=== PATIENT | female | born 1970 | race Caucasian/White ===

== ENCOUNTER 2023-02-21 08:16 | Observation (INO) | payer MEDICARE, MEDICAID, SELFPAY ==
[2023-02-16] MEDS: Lactated Ringers 1,000 ML 15 ML IV (12:47)
[2023-02-16 12:48] VITALS: BP 84/54; PULSE 56; RESP 18; TEMP 36.4; O2SAT 100; BMI 26.9
[2023-02-16 13:01] VITALS: BP 89/56
--- NOTE | 2023-02-16 13:21 | NURSING ---
Surgery cancelled d/t low bp, instructions given to pt when she reschedules her surgery to not take bp meds by Dr Barnes. Pt d/c home, she states she will call Dr Wilder office to reschedule.
[2023-02-21] VITALS (14 sets, daily range): BP systolic 83–166; BP diastolic 58–97; PULSE 74–93; RESP 14–18; TEMP 36.8–37.4; O2SAT 92–100; BMI 26.9
[2023-02-21] MEDS: Lactated Ringers 1,000 ML 15 ML IV (07:55)
--- NOTE | 2023-02-21 08:05 | RAD_ITS ---
PROCEDURE: Implantation of spinal cord stimulator. DATE OF EXAMINATION: February 21, 2023. INDICATION: Female, 52 years old. Chronic back pain. Prior laminectomy. FLUOROSCOPY TIME (if supplied): (20.9 seconds) minutes/seconds. 3.15 mGy RAD/Thoracic Spine 2 Views IMPRESSION: Intraoperative imaging provided for implantation of spinal cord stimulator. The distal tip of the electrodes is seen at the T7-T8 level. Electronically Signed: Arnav Bravo MD at 11:19 EST ,
--- NOTE | 2023-02-21 08:14 | OP.PCM_ITS ---
Report of Operation Date of Procedure: 02/21/23 Description of Surgical Findings:: REPORT OF OPERATION PREOPERATIVE DIAGNOSES: 1. Lumbar stenosis, spondylosis. 2. Chronic back pain POSTOPERATIVE DIAGNOSES: 1. Lumbar stenosis, spondylosis. 2. Chronic back pain PROCEDURE PERFORMED: 1. T9-10 partial bilateral laminectomies. 2. Dorsal column stimulator paddle lead placement. 3. Subcutaneous placement of dorsal column stimulator generator. 4. One hour of complex programming postoperatively. 5. Neuro monitoring bilateral upper and bilateral lower extremities SURGEON: [ ] ENVIRONMENTAL SAMPLER: [ ] ANESTHESIA: General endotracheal anesthesia. IV FLUIDS: [ ] mL of crystalloid. ESTIMATED BLOOD LOSS: [ ] mL. URINE OUTPUT: [ ]ml. STATEMENT OF MEDICAL NECESSITY: This patient is a 52-year-old female with intractable back and leg pain. The patient has opted for treatment of operative intervention, understanding the risks to include, damage to nerves, arteries and veins, possibility of continued pain, spinal fluid leak, paralysis, need for additional surgery, pulmonary embolism, heart attack, stroke, or . DESCRIPTION OF PROCEDURE: The patient was identified in the preoperative holding area. There, the patient received preoperative IV antibotics and was then transferred to the operating suite. Once in the operating suite, after general endotracheal anesthesia was established, the patient was transferred to the [place] operating table in the prone position. All bony prominences were padded accordingly. The thoracolumbar spine was prepped and draped in standard surgical fashion. Incision was made over the thoracolumbar spine. An incision was centered over the T9-10 interlaminar space, taken down to the thoracic fascia. It was then divided and subperiosteal dissection was taken down to the level of the facet joints. Partial bilateral laminectomies were performed at the T9-10 interspace, with part of the inferior lamina of T9, and superior lamina of T10. At this point the paddle lead was placed spanning from T8 inferiorly. It was then anchored to the fascia using standard anchors with a 0 Ethibond suture. A second incision was made over the right iliolumbar region for the battery pocket. Wires from the stimulator were then passed subcutaneously with a passing device to the battery pocket and then connected to a new generator battery. Both incisions were then irrigated and closed with #1 vicryl for the fascia, 2-0 vicryl for subcutaneous, and 2-0 nylon for skin. Sterile dressing was applied with 4 x 4, ABD, and tape. Sponge, instrument, and needle counts were correct at the end of the case. Neurophysiologic monitoring was maintained at baseline throughout the duration of the case. The patient was extubated, taken to PACU without incident. Then one hour was spent with complex programming when the patient recovered Surgeon: Davie Wilder Type of Anesthesia: General Estimated Blood Loss (mL): 50 cc Fluids Replaced: 1300 cc Grafts/Implants Used: [employer] Complications None Admit VTE Documentation VTE Present on Admission: No
--- NOTE | 2023-02-21 08:14 | PN.ORTHO_ITS ---
Subjective Subjective Seen and examined postop. Resting comfortably. Pain controlled. No complaints Objective Data Objective Data Vital Signs: Vital Signs Temp Pulse Resp BP Pulse Ox O2 Del Method 98.7 F 74 16 135/62 H 100 Room Air 02/21/23 07:38 02/21/23 07:38 02/21/23 07:38 02/21/23 07:38 02/21/23 07:38 02/21/23 07:38 Oxygen Delivery Method Room Air Weight: 133 lb 3.2 oz Body Mass Index (BMI) 26.9 Physical Exam Const alert, oriented x3 and no apparent distress General Appearance: cooperative, comfortable and well kempt HEENT normocephalic and head/scalp atraumatic Eyes EOMs intact bilaterally and conjunctivae normal Neck full ROM General: normal visual inspection Chest inspection of chest normal and palpation of chest normal Resp normal respiratory effort and normal air movement Cardio regular rate, regular rhythm and peripheral pulses 2+ throughout GI soft to palpation, non-tender and non-distended Back/Spine Back/Spine Narrative: Dressings clean dry and intact Cervical Spine: cervical ROM normal Thoracic Spine / Upper Back: normal to inspection Lumbar Spine / Lower Back: normal to inspection Extremity normal to inspection, full ROM, normal capillary refill, no clubbing, cyanosis or edema and no calf tenderness Skin no rashes or lesions noted General Skin Exam: no breakdown Neuro oriented x3, CN's II-XII intact bilaterally, moves all extremities, no focal motor deficits, no sensory deficits noted and deep tendon reflexes 2+ bila terally Motor Exam: strength 5/5 throughout and muscle tone normal throughout Assessment & Plan Assessment/Plan (1) Lumbar spondylosis: PLAN: Admit to floor for observation See orders Discharge planning likely home tomorrow
--- NOTE | 2023-02-21 08:14 | PCM.DC.SUM ---
Providers Date of Admission: 02/21/23 Primary Care Physician: Stella Pena EXTENSION SERVICE ADVISOR-C Reason For Visit: THORACIC 9 - THORACIC 10 LAMINECTOM Medications at Discharge Home Medications amlodipine 2.5 mg tablet 2.5 mg PO DAILY 02/10/23 atorvastatin 40 mg tablet 40 mg PO DAILY 02/10/23 duloxetine 30 mg capsule,delayed release 60 mg PO DAILY 02/10/23 lisinopril 20 mg tablet 40 mg PO DAILY 02/10/23 multivitamin (Daily Multi-Vitamin tablet) 1 tab PO DAILY 02/10/23 nebivolol 20 mg tablet 40 mg PO DAILY 02/10/23 potassium 99 mg tablet 99 mg PO DAILY 02/10/23 hydrocodone-acetaminophen 5-325mg 5mg-325mg 1 tab PO Q6H 7 days #28 tabs 02/21/23 Hospital Course Operations - (T9-10 laminectomy. Implantation of spinal cord stimulator lead and generator) Summary of Care Provided Minutes Spent on Discharge: 15 Hospital Course: The patient is a 52-year-old female who underwent implantation of a spinal cord stimulator lead and generator on 02/21/2023. She was subsequently admitted. The hospitalist was consulted for medical management. The patient progressed well. Her pain was controlled and she was mobilizing well. No significant medical issues were reported. She was subsequently discharged home on 02/22/2023 to follow-up with Dr. Wilder. Physical Exam Const alert, oriented x3 and no apparent distress General Appearance: cooperative, comfortable and well kempt Neck full ROM General: normal visual inspection Resp normal respiratory effort and normal air movement Effort and Inspection: able to speak in complete sentences Cardio regular rate and peripheral pulses 2+ throughout GI soft to palpation, non-tender and non-distended Back/Spine Back/Spine Narrative: Dressings clean dry and intact. Incisions well approximated with interrupted sutures in place. No tenderness erythema drainage or fluctuance Cervical Spine: cervical ROM normal Thoracic Spine / Upper Back: normal to inspection Lumbar Spine / Lower Back: normal to inspection Extremity normal to inspection, full ROM, normal capillary refill, no clubbing, cyanosis or edema and no calf tenderness Skin no rashes or lesions noted General Skin Exam: no breakdown Neuro oriented x3, CN's II-XII intact bilaterally, moves all extremities, no focal motor deficits, no sensory deficits noted and deep tendon reflexes 2+ bilaterally Motor Exam: strength 5/5 throughout and muscle tone normal throughout Weight / BMI Weight Weight: 133 lb 3.2 oz Body Mass Index (BMI) 26.9 D/C Instructions Discharge Diet: No restrictions Additional Activity Instructions: No repetitive bending twisting or lifting greater than 5 pounds. No reaching above head. Call your doctor if your incision/area has: Continuous Slow Oozing, Sudden Increased Bleeding, Increased Pain/ Swelling, Increased Redness, Foul Smelling Discharge and Swelling at the incision site Call your doctor if you observe: Fever of 101 or Higher, Coldness, Increased Pain, Numbness or Tingling, Change in Color, Inability to urinate, Inability to have a bowel movement, Using more than 1 pad per hour, Shortness of breath, Dizziness, Fainting spells, Swelling in the ankles, Chest pain, Prolonged hiccupping, Increased palpitations (irregular heartbeat), Calf discomfort and Uncontrolled pain Cleanse incision/area with: Do not get Incision Wet and Keep Dressing Clean & Dry Additional Dressing/Incision Instructions: Change dressings daily with iodine gauze and tape. Use waterproof dressings to shower. Additional Instructions: 1. During your procedure, you received sedation through your IV. Please follow these instructions for the next 24 hours: Do not drive a motor vehicle, do not drink any alcoholic beverages, and do not sign any legal documents or make personal or business decisions. A responsible adult should stay with you at least 6 hours after the procedure. 2. Keep your surgical site/incision clean and the dressing dry and intact. Change dressings daily with iodine gauze and tape. Use waterproof dressings to shower. You may use an ice pack at the surgical site to reduce any swelling or discomfort. 3. Monitor the incision site for any signs or symptoms of infection. Watch for redness, excessive swelling or drainage, or continued pain at the incision site after 3 days. Contact your physician immediately for a fever, chills or a temperature of 101.5? F or greater. 4. Take your medication exactly as prescribed by your physician. Do not attempt to wean yourself off any of your medications even though your pain is improving. This process needs to be carefully monitored by your doctor. Take any antibiotics prescribed exactly as directed and until they are gone. 5. Avoid stretching, bending, pulling, twisting or any sudden movements. Do not bend or twist at the waist. Do not raise your arms above your head; however, you may brush your hair or scratch your head, but nothing higher than that. Any movements higher than that could cause your electrode wires to move from their current position. No not lie on your stomach. Do not bend at the waist to put your shoes on; you must lift your legs up to do this. 6. No lifting greater than 5 pounds. Try to be careful. Any falls could dislodge the leads. 7. Do not operate a motor vehicle, equipment or a power tool while your stimulator is on. If you need to use any equipment, you must turn your stimulator off first. As a passenger in a motor vehicle, you may use your stimulator. 8. Do not have any manipulation done by a chiropractor or any other physician without first consulting with the physician who placed your spinal cord stimulator. 9. Without movement, you may note changes in the intensity of the stimulator. For example, you may notice a different stimulation when you are standing than when you are sitting or lying down. This is normal the first few weeks following the implant and will stabilize over time. 10. Please contact our office if you are even scheduled for a CT scan or an MRI. 11. Please call us if you have any questions, problems or concerns. Please Follow Up With: Davie Wilder, DO Meaningful Use Info Meaningful Use Diagnoses (Choose all that apply): None applicable Discharge Plan Admission Admit Date/Time: 02/21/23 08:16 Attending Provider: Raymond Song Primary Care Provider: Stella Pena NP Consulting Providers: Faith Garnett; Jhonny Jenkins; Mary Lou,[place]; Dionte,Tiffanie; Abhay Flores; Monica Whitley; Yue Booker; Raymond Ogden; Raymond Song; Jh Saldana; Sterling Sandoval; Dalia Ochoa; Tom Pickett; Quoc Madrid; Don Joyce; Yuni Morris; Travis Nicole; Emma Ewing; Eriberto Amaro; Emre Blair; Michael Gonzalez; Delmi Owens; Elio Saenz; Rosamaria Mitchell NP; John Butler; Davie Wilder Discharge Orders/Prescriptions Prescriptions: New hydrocodone-acetaminophen 5-325 mg tablet 1 tab PO Q6H 7 Days Qty: 28 0RF Continued multivitamin [Daily Multi-Vitamin] Tablet 1 tab PO DAILY potassium 99 mg tablet 99 mg PO DAILY atorvastatin 40 mg tablet 40 mg PO DAILY Patient Comments: TAKE 1 TABLET BY MOUTH ONCE DAILY FOR 90 DAYS nebivolol 20 mg tablet 40 mg PO DAILY Patient Comments: TAKE 2 TABLETS BY MOUTH IN THE MORNING lisinopril 20 mg tablet 40 mg PO DAILY amlodipine 2.5 mg tablet 2.5 mg PO DAILY Patient Comments: TAKE 1 TABLET BY MOUTH ONCE DAILY IN THE MORNING duloxetine 30 mg capsule,delayed release(DR/EC) 60 mg PO DAILY Patient Comments: TAKE ONE CAPSULE BY MOUTH with 60mg DOSE EVERY DAY Discontinued tizanidine 2 mg tablet 12 mg PO TID Referrals / Follow Up: Davie Wilder DO [Med Staff - Active Staff] - Stella Pena NP, EXTENSION SERVICE ADVISOR-C [Primary Care Provider] - Disposition Disposition (needs filled in before D/C Order can be placed): Home, Self Care
[2023-02-21] MEDS: Cefazolin 2 GM in 0.9% Normal Saline (100mL Bag) 100 ML IV (08:55)
[2023-02-21] MEDS: oxyCODONE 5 MG Tablet PO ×2 (13:16→17:46)
[2023-02-21] MEDS: Morphine 4 MG/ML Syringe IV ×2 (14:03→16:10)
[2023-02-21] MEDS: tiZANidine HCl 2 MG Tablet 12 MG PO ×2 (14:38→21:19)
[2023-02-21] MEDS: Acetaminophen 500 MG Tablet 1000 MG PO (14:41)
[2023-02-21] MEDS: Lactated Ringers 1,000 ML 100 ML IV (17:46)
[2023-02-21] MEDS: Cefazolin 1 GM/50 ML BAG IV (18:50)
--- NOTE | 2023-02-21 19:10 | PCM.PN.HOSP ---
Reason for Visit Reason for Visit: Diagnoses Spondylosis without myelopathy or radiculopathy, lumbar region (02/21/23) Subjective Subjective And his recent status post operative intervention of the lumbar spine per Dr. Wilder. She notes she has 10 out of 10 pain, sharp and dull aching to the lumbar spine with no paresthesias or focal shooting pains down her legs. She does state that she did urinate recently postoperatively and has blood in her urine which is new. She denies any dysuria prior to her current presentation. Patient denies fevers, chills, nausea, emesis, abdominal pain, chest pain or dyspnea. Objective Data Objective Data Vital Signs: Vital Signs Temp Pulse Resp BP Pulse Ox O2 Del Method O2 Flow Rate 98.4 F 78 16 99/59 L 96 Room Air 2 02/21/23 18:34 02/21/23 18:34 02/21/23 18:34 02/21/23 18:34 02/21/23 18:34 02/21/23 18:34 02/21/23 12:45 Oxygen Flow Rate (L/min) 2 Oxygen Delivery Method Room Air Weight: 133 lb 3.2 oz Body Mass Index (BMI) 26.9 Radiography Diagnostic Testing: Radiology Impression Thoracic Spine X-Ray 02/21/23 08:05 IMPRESSION: Intraoperative imaging provided for implantation of spinal cord stimulator. The distal tip of the electrodes is seen at the T7-T8 level. Electronically Signed: Arnav Bravo MD at 11:19 EST , Physical Exam Narrative Physical Examination: General: Awake, alert, oriented x 3 and cooperative, seated upright in MS bed, noting 10 out of 10 lumbar back pain. Skin: Normal color, normal turgor, no icterus, no cyanosis except for recent OR with lumbar back dressing in place with no drainage. HEENT: AT/NC, EOMI, PERRLA, mildly dry MM, no carotid bruits or JVD noted. Lungs: CTA bilaterally, moderate effort, mild decrease BL bases, no rales, ronchi or wheezing. Heart: Regular rate and rhythm; no gallop, rub audible. Abdomen: Soft, mild generalized discomfort, worse right upper quadrant, mildly tympanitic, mildly distended, hyperactive BS, no obvious appreciated HSM. Extremities: No cyanosis, clubbing, or edema. Neurological: Patient awake, alert, oriented as noted, cognitive function intact; pupils equally reactive to light and accommodation, cranial nerves II-XII grossly normal, moving all 4 extremities except limited given recent lumbar back surgery, no focal deficits, strength accordingly moderately to severely globally decreased. Psychiatric: Affect appears uncomfortable, no acute evidence of depressive or anxiety feelings. Assessment & Plan Assessment/Plan (1) Lumbar spondylosis: PLAN: Plan The patient is a 52 y/o F w/ PMHx: CAD s/p PCI, HTN, HLD, OA, Anxiety and Depression, Chronic back pain who presents to the [facility] on 02/21/23 secondary to history of ongoing chronic back pain with lumbar stenosis and spondylosis with planned T9-10 partial bilateral laminectomy, dorsal column stimulator paddle lead placement, subcutaneous placement of dorsal column stimulator generator per Dr. Wilder. #1. Chronic lumbar back pain with stenosis and spondylosis: Failed conservative therapies and treatments, admitted per Dr. Wilder for planned T9-10 partial bilateral laminectomy, dorsal column stimulator paddle lead placement, subcutaneous placement dorsal column stimulator, post-operative pain management, bowel regimen, DVT Prophylaxis, PT/OT/CM per surgery discretion. #2. Postoperative hematuria, unclear etiology: Attempted to clarify with staff if patient was straight cathed for procedure, no Marcelo upon patient transition to floor from PACU, urinalysis requested. If Marcelo catheter was present and removed or if patient was straight catheterized then certainly could have been a microtear. #3. CAD: Status post PCI, resume aspirin therapy once cleared per orthospine given recent operative intervention, continue nebivolol, lisinopril, statin therapy. #4. Hypertension: Continue home regimen including nebivolol, lisinopril, amlodipine, PRN hydralazine. #5. Hyperlipidemia: Continue patient on statin therapy. #6. Anxiety and depression: We will continue patient home duloxetine regimen. #7. DVT prophylaxis: SCDs, chemoprophylaxis per surgery discretion given recent OR. Charges/Coding Visit Charges Inpatient E&M: 17459 Subs Hosp L3
[2023-02-21 19:27] LABS: Bacteria 0 SEEN /hpf (None Seen); Mucous, Urine 0 SEEN /hpf (<or=2+)
[2023-02-21 19:28] LABS: Glucose, Dipstick Normal (Normal); Ketone-Dipstick Negative (Negative); Leukocyte Esterase-Dipstick 25 /ul (Negative); Nitrite-Dipstick Negative (Negative); Occult Blood-Urine 250 /ul (Negative); Protein-Dipstick 30 mg/dl (Negative); Urine Bilirubin Dipstick Negative (Negative); Urine Clarity Sl. Cloudy (Clear); Urine Urobilinogen Normal (Normal)
[2023-02-21 19:30] LABS: Color, Urine SEE COMMENT BELOW (Yellow)
[2023-02-21 19:34] LABS: Red Blood Cells-Urine 10-25 SEEN /hpf (0-5)
[2023-02-21 19:35] LABS: Squamous Epithelial Cells - UA 0-5 SEEN /hpf (5-10); White Blood Cells 0-5 SEEN /hpf (0-5)
[2023-02-21] MEDS: Morphine 2 MG/ML Syringe IV ×2 (19:38→21:21)
[2023-02-21] MEDS: Atorvastatin Calcium 40 MG Tablet PO (21:29)
[2023-02-22 02:31] VITALS: BP 140/89; PULSE 77; RESP 16; TEMP 36.7; O2SAT 100
[2023-02-22] MEDS: oxyCODONE 5 MG Tablet PO ×3 (02:35→10:42)
[2023-02-22] MEDS: Cefazolin 1 GM/50 ML BAG IV (02:36)
[2023-02-22] MEDS: Morphine 2 MG/ML Syringe IV (04:46)
[2023-02-22] MEDS: tiZANidine HCl 2 MG Tablet 12 MG PO (04:49)
[2023-02-22 05:04] VITALS: BP 148/84; PULSE 81; RESP 18; TEMP 36.6; O2SAT 100
--- NOTE | 2023-02-22 07:16 | PN.HOSP_ITS ---
Reason for Visit Reason for Visit: Diagnoses Spondylosis without myelopathy or radiculopathy, lumbar region (02/21/23) Subjective Subjective Patient is a 52-year-old lady with history of chronic low back pain secondary to spinal spondylosis and stenosis who underwent T9-10 partial bilateral laminectomy, dorsal column stimulator paddle lead placement, subcutaneous placement dorsal column stimulator on 02/22/[address] Wilder. The hospitalist service consulted to assist with management of patient medical comorbid Objective Data Objective Data Vital Signs: Vital Signs Temp Pulse Resp BP Pulse Ox O2 Del Method O2 Flow Rate 97.9 F 81 18 148/84 H 100 Room Air 2 02/22/23 05:04 02/22/23 05:04 02/22/23 05:04 02/22/23 05:04 02/22/23 05:04 02/22/23 05:04 02/21/23 12:45 Oxygen Flow Rate (L/min) 2 Oxygen Delivery Method Room Air Weight: 60.419 kg Body Mass Index (BMI) 26.9 Intake & Output: Intake and Output for Last 24 Hours 02/20/23 02/21/23 02/22/23 23:59 23:59 23:59 Intake Total 326.25 / 949.58 751.08 / 751.08 Balance 326.25 / 949.58 751.08 / 751.08 Lab / Micro Data Labs: Laboratory Results - last 24 hr 02/21/23 19:15: Urine Color SEE COMMENT BELOW, Urine Clarity Sl. Cloudy, Urine pH 8.0, Ur Specific [place] 1.010, Urine Protein 30 H, Urine Glucose (UA) Normal, Urine Ketones Negative, Urine Occult Blood 250 H, Urine Nitrite Negative, Urine Bilirubin Negative, Urine Urobilinogen Normal, Ur Leukocyte Esterase 25 H, Urine RBC 10-25 SEEN, Urine WBC 0-5 SEEN, Ur Squamous Epith Cells 0-5 SEEN, Urine Bacteria 0 SEEN, Urine Mucus 0 SEEN Radiography Diagnostic Testing: Radiology Impression Thoracic Spine X-Ray 02/21/23 08:05 IMPRESSION: Intraoperative imaging provided for implantation of spinal cord stimulator. The distal tip of the electrodes is seen at the T7-T8 level. Electronically Signed: Arnav Bravo MD at 11:19 EST , Physical Exam Narrative GENERAL: cooperative HEENT: Atraumatic; normocephalic EYES; Anicteric, Normal Conjunctiva NECK; supple, normal thyroid, RESPIRATORY: Diminished to auscultation CARDIOVASCULAR: Regular S1 S2, GI: soft, normoactive bowel sounds, : No Renal angle tenderness; EXTREMITIES: No edema, no clubbing, MUSCULOSKELETAL: no muscle wasting NEURO: Awake; no lateralizing signs. SKIN: No Rash PSYCH; Flat affect Assessment & Plan Assessment/Plan (1) Lumbar spondylosis: PLAN: Plan Patient is a 52-year-old lady with history of chronic low back pain secondary to spinal spondylosis and stenosis who underwent T9-10 partial bilateral laminectomy, dorsal column stimulator paddle lead placement, subcutaneous placement dorsal column stimulator on 02/22/[address] Wilder. The hospitalist service consulted to assist with management of patient medical comorbidities 1. Chronic back pain ? Status post PT9-10 partial bilateral laminectomy, dorsal column stimulator paddle lead placement, subcutaneous placement dorsal column stimulator on 02/22/[address] Wilder. The hospitalist service consulted to assist with mary gement of patient medical comorbid 2. Postop hematuria ? Resolved 3. Coronary artery disease ? With previous PCI patient is on antiplatelet therapy with aspirin plan is to continue 4. Essential hypertension ? Patient blood pressure levels low this a.m. antihypertensives held 5. Dyslipidemia ?Patient is on statin therapy, continued at home dose 6. Depression with anxiety ? Patient is on duloxetine continue 7. DVT prophylaxis ? Defer to primary service Time spent in the patient's overall evaluation,decision-making process, review of diagnostic data, adjustment of management, discussion with other providers, nursing nursing and ancillary staff involved in patient's care documentation, 35 minutes Charges/Coding Visit Charges Inpatient E&M: 13642 Subs Hosp L2
[2023-02-22] MEDS: Ensure Surgery 237 ML LIQUID PO (07:22)
[2023-02-22] MEDS: DULoxetine Hcl 60 MG Capsule PO (07:23)
[2023-02-22] MEDS: Multivitamins,Therapeutic Tablet 1 TABLET PO (07:23)
[2023-02-22] MEDS: Atorvastatin Calcium 40 MG Tablet PO (07:23)
[2023-02-22 08:08] VITALS: BP 94/57; PULSE 77; RESP 18; TEMP 36.6; O2SAT 94
[2023-02-22 10:54] VITALS: BP 130/97; PULSE 95; RESP 18; TEMP 36.6; O2SAT 97
--- NOTE | 2023-02-22 10:55 | CASEMGMT ---
GRISEL ANTHONY Assessment: Face to Face with pt for initial transition planning/care coordination assessment. RN GABRIELLE introduced self and role at [facility], pt voices understanding and consents to assessment. Pt is A&O x4 and answers all questions appropriately at this time. Pt standing in room, ready to use bathroom. Care providers, pharmacy, and demographics verified/updated. Admitting Dx: thoracic 9- thoracic 10 laminectomy PCP:Stella Pena ICU TECH Specialists:richard Wilder; Shanique, cardio [facility], pt states meds were already called in here. Insurance: [facility], [place] Prescription Benefit: yes [place]: [place], sig other Living Arrangements: Pt lives with sig other in a ground level apt with a couple of steps to enter. Pt reports she is I in ADL's and denies concerns at home. Transportation: Pt drives self and denies concerns with transportation. Pt sig other will transport her until she can drive again. DME:None and denies need for. HHC/SNF: Denies hx of Pt states no concerns with going home at time of dc. Pt states no further concerns/needs. CM to follow. Advised pt to ask CM if any further question/concerns/needs arise, voices understanding. Pt Goal: Home Plan: Home
--- NOTE | 2023-02-22 11:00 | CASEMGMT ---
GRISEL CM in to discuss CARDOZO form with patient. RN CM explained CARDOZO form, patient voiced understanding. Pt signed form and filed in chart. Pt provided with a copy of signed CARDOZO form. Patient had no further questions or concerns at this time.
--- NOTE | 2023-02-22 18:01 | PHA.DC.MC.R ---
Pharmacy [facility] Pharmacy Service has performed discharge medication reconciliation and counseling for this patient. The patient's discharge medication list was reviewed for discrepancies and discrepancies were resolved. The patient was counseled on the following discharge medications and changes in medications for homegoing were reviewed. 1. NORCO The Reason for Use, instructions for use, and potential side effects were reviewed for all new medications. The patient's questions regarding all of their medications were answered. The patient was able to verbally demonstrate an understanding of their discharge medications. patient was counselled by Ramin Goode PharmD candidate Medications at Discharge Home Medications amlodipine 2.5 mg tablet 2.5 mg PO DAILY 02/10/23 atorvastatin 40 mg tablet 40 mg PO DAILY 02/10/23 duloxetine 30 mg capsule,delayed release 60 mg PO DAILY 02/10/23 lisinopril 20 mg tablet 40 mg PO DAILY 02/10/23 multivitamin (Daily Multi-Vitamin tablet) 1 tab PO DAILY 02/10/23 nebivolol 20 mg tablet 40 mg PO DAILY 02/10/23 potassium 99 mg tablet 99 mg PO DAILY 02/10/23 hydrocodone-acetaminophen 5-325mg 5mg-325mg 1 tab PO Q6H 7 days #28 tabs 02/21/23
== END 2023-02-22 12:40 | disposition home or self-care (01) ==
LOC: SDC 17:40 → MS3 18:58
PROVIDERS: Family Medicine; Admitting Provider Orthopaedic Surgery; PCP Nurse Practitioner Family; Referring Provider Orthopaedic Surgery; Visit Provider Internal Medicine
PROC: (CPT 63655; principal; 2023-02-21 08:45)
DX: Z45.42 Encounter for adjustment and management of neurostimulator (principal); M48.061 Spinal stenosis, lumbar region without neurogenic claudication; M47.816 Spondylosis without myelopathy or radiculopathy, lumbar region; G89.29 Other chronic pain; Z79.899 Other long term (current) drug therapy; Z79.82 Long term (current) use of aspirin; I10 Essential (primary) hypertension; I25.2 Old myocardial infarction; I25.10 Atherosclerotic heart disease of native coronary artery without angina pectoris; E78.5 Hyperlipidemia, unspecified; F41.9 Anxiety disorder, unspecified; F32.A Depression, unspecified
CPT/HCPCS: 63685; 63655; 00300; 72070; 76000; 81001; 94668; 96361; 96365; 96366; 96375; 96376; 99221; 99252; C1713; C1778; C1820; J7120; G0378; G0463; J2405

== ENCOUNTER → 2023-05-17 | Outpatient (CLI) | payer MEDICARE, MEDICAID, SELFPAY ==
[2023-05-17 16:33] LABS: Amphetamine Urine VISTA NEGATIVE (<1000 ng/mL); Barbiturate Urine VISTA NEGATIVE (< 200 ng/mL); Benzodiazepine Urine VISTA NEGATIVE (< 200 ng/mL); Cocaine Urine VISTA NEGATIVE (< 300 ng/mL); Ecstacy Urine VISTA NEGATIVE (< 500 ng/mL); Methadone Urine VISTA NEGATIVE (< 300 ng/mL); PCP Urine VISTA NEGATIVE (< 25 ng/mL); THC Urine VISTA POSITIVE (< 50 ng/mL); Vista UDS pH Range 5
== END | disposition home or self-care (01) ==
LOC: LAB 15:48
PROVIDERS: PCP Nurse Practitioner Family; Referring Provider Anesthesiology Pain Medicine; Visit Provider Anesthesiology Pain Medicine
DX: F11.20 Opioid dependence, uncomplicated (principal)
CPT/HCPCS: 80307

== ENCOUNTER 2023-05-25 15:23 | Observation (INO) | payer MEDICARE, MEDICAID, SELFPAY ==
[2023-05-25] VITALS (13 sets, daily range): BP systolic 96–135; BP diastolic 45–103; PULSE 58–76; RESP 16–18; TEMP 36.2–37.1; O2SAT 93–100; BMI 26.9
--- NOTE | 2023-05-25 12:18 | PCM.OPRPT ---
Report of Operation Date of Procedure: 05/25/23 Description of Surgical Findings:: REPORT OF OPERATION PREOPERATIVE DIAGNOSES: 1. Lumbar stenosis, spondylosis. 2. Chronic back pain. POSTOPERATIVE DIAGNOSES: 1. Lumbar stenosis, spondylosis. 2. Chronic back pain PROCEDURE PERFORMED: 1. Explantation of spinal cord stimulator wire and generator 2. Spinal cord stimulator paddle lead left in place STATEMENT OF MEDICAL NECESSITY: This patient is a 53-year-old female status post implantation of permanent spinal cord stimulator lead and generator. She has stated that the device does not adequately control her pain and wishes to have it removed. The patient has opted for treatment of operative intervention, understanding the risks to include, damage to nerves, arteries and veins, possibility of continued pain, need for additional surgery, pulmonary embolism, heart attack, stroke, or . DESCRIPTION OF PROCEDURE: The patient was identified in the preoperative holding area. There, the patient received the preoperative IV antibotics and then transferred to the operating suite. Once in the operating suite, after being given the appropriate amount of sedation by anesthesia, the patient was transferred to the [place] operating table in the prone position. All bony prominences were padded accordingly. The thoracolumbar spine was prepped and draped in standard surgical fashion. The previous incision was reopened over the thoracolumbar spine, taken down to the thoracic fascia, and spinal cord stimulator lead wire and anchors were identified. The previous generator incision over the right posterior iliolumbar region was then also reopened and the spinal cord stimulator generator was identified. The paddle lead was examined and found to be very scarred down to the dura. It was felt that any further attempt to remove the paddle lead would likely result in dural tear and/or cord injury, so the paddle lead was left in place. The wire from the lead was cut in both the wire and generator were removed. Both incisions were then irrigated and closed with #1 vicryl for the fascia, 2-0 vicryl for subcutaneous, and 3-0 Monocryl for skin. Sterile dressings were applied with 4 x 4, ABD, and tape. Sponge, instrument, and needle counts were correct at the end of the case. The patient was taken to PACU without incident. Surgeon: Davie Wilder Type of Anesthesia: Local and MAC Estimated Blood Loss (mL): 10 cc Fluids Replaced: 1100 cc Complications None Admit VTE Documentation VTE Present on Admission: No
--- NOTE | 2023-05-25 12:20 | RAD_ITS ---
PROCEDURE: Explantation of the spinal cord stimulator generator DATE OF EXAMINATION: May 25, 2023 INDICATION: Female, 53 years old. Spinal cord stimulator FLUOROSCOPY TIME (if supplied): (4.7 seconds) minutes/seconds. 1.12 mGy RAD/Lumbar Spine 2 or 3 Views IMPRESSION: Intraoperative imaging provided for explantation of the spinal cord stimulator generator. Electronically Signed: Arnav Bravo MD at 14:44 EST ,
--- NOTE | 2023-05-25 12:23 | PCM.PN.ORT ---
Subjective Subjective Seen and examined postop. Resting comfortably. Pain controlled. No complaints Physical Exam Const alert, oriented x3 and no apparent distress General Appearance: cooperative, comfortable and well kempt HEENT normocephalic and head/scalp atraumatic Eyes EOMs intact bilaterally and conjunctivae normal Neck full ROM General: normal visual inspection Chest inspection of chest normal and palpation of chest normal Resp normal respiratory effort and normal air movement Effort and Inspection: able to speak in complete sentences Cardio regular rate, regular rhythm and peripheral pulses 2+ throughout GI soft to palpation, non-tender and non-distended Back/Spine Back/Spine Narrative: Dressings clean dry and intact. Cervical Spine: cervical ROM normal Thoracic Spine / Upper Back: normal to inspection Lumbar Spine / Lower Back: normal to inspection Extremity normal to inspection, full ROM, normal capillary refill, no clubbing, cyanosis or edema and no calf tenderness Skin no rashes or lesions noted General Skin Exam: no breakdown Neuro oriented x3, CN's II-XII intact bilaterally, moves all extremities, no focal motor deficits, no sensory deficits noted and deep tendon reflexes 2+ bilaterally Motor Exam: muscle tone normal throughout Assessment & Plan Assessment/Plan (1) Lumbar spondylosis: PLAN: Okay to admit See orders Discharge planning, likely home tomorrow
--- NOTE | 2023-05-25 12:25 | DS.PCM_ITS ---
Providers Date of Admission: 05/25/23 Primary Care Physician: Stella Pena NP-C Reason For Visit: EXPLANTATION OF SPINAL CORD STIMULA Diagnosis Discharge Diagnosis (1) Lumbar spondylosis: Status: Acute Code(s): M47.816 - Spondylosis without myelopathy or radiculopathy, lumbar region Plan: Okay to admit See orders Discharge planning, likely home tomorrow Medications at Discharge Home Medications amlodipine 2.5 mg tablet 2.5 mg PO DAILY 02/10/23 atorvastatin 40 mg tablet 40 mg PO DAILY 02/10/23 duloxetine 30 mg capsule,delayed release 60 mg PO DAILY 02/10/23 multivitamin (Daily Multi-Vitamin tablet) 1 tab PO DAILY 02/10/23 nebivolol 20 mg tablet 40 mg PO DAILY 02/10/23 dicyclomine 10 mg capsule 10 mg PO 4X/DAY 05/23/23 hydrocodone-acetaminophen 5-325mg 5mg-325mg 1 tab PO BID 05/23/23 tizanidine 6 mg capsule 12 mg PO TID 05/23/23 pantoprazole 40 mg tablet,delayed release mg PO 05/25/23 Hospital Course Operations - (Explantation of spinal cord stimulator lead and generator) Summary of Care Provided Minutes Spent on Discharge: 15 Hospital Course: The patient is a 53-year-old female who underwent explantation of her spinal cord stimulator lead and generator on 05/25/2023. She was subsequently admitted. The hospitalist was consulted for medical management. The patient progressed well. Her pain was well-controlled and she was mobilizing well. She was subsequently discharged home on 05/16/2023 to follow-up with Dr. Wilder in 3 weeks. Physical Exam Const alert, oriented x3 and no apparent distress General Appearance: cooperative, comfortable and well kempt Neck full ROM General: normal visual inspection Resp normal respiratory effort and normal air movement Effort and Inspection: able to speak in complete sentences Cardio regular rate and peripheral pulses 2+ throughout GI soft to palpation, non-tender and non-distended Back/Spine Back/Spine Narrative: Dressings clean dry and intact. Incisions well-approximated. No tenderness erythema drainage or fluctuance Cervical Spine: cervical ROM normal Thoracic Spine / Upper Back: normal to inspection Lumbar Spine / Lower Back: normal to inspection Extremity normal to inspection, full ROM, normal capillary refill, no clubbing, cyanosis or edema and no calf tenderness Skin no rashes or lesions noted General Skin Exam: no breakdown Neuro oriented x3, CN's II-XII intact bilaterally, moves all extremities, no focal motor deficits, no sensory deficits noted and deep tendon reflexes 2+ bilaterally Motor Exam: strength 5/5 throughout and muscle tone normal throughout D/C Instructions Discharge Diet: No restrictions Discharge Activity: Return to Normal Activity May resume sexual activity in: No Restrictions Call your doctor if your incision/area has: Continuous Slow Oozing, Sudden Increased Bleeding, Increased Pain/ Swelling, Increased Redness, Foul Smelling Discharge and Swelling at the incision site Call your doctor if you observe: Fever of 101 or Higher, Coldness, Increased Pain, Numbness or Tingling, Change in Color, Inability to urinate, Inability to have a bowel movement, Using more than 1 pad per hour, Shortness of breath, Dizziness, Fainting spells, Swelling in the ankles, Chest pain, Prolonged hiccupping, Increased palpitations (irregular heartbeat), Calf discomfort and Uncontrolled pain Cleanse incision/area with: Do not get Incision Wet and Keep Dressing Clean & Dry Additional Dressing/Incision Instructions: Change dressing daily with gauze and tape. Leave Dermabond mesh intact. Additional Instructions: 1. During your procedure, you received sedation through your IV. Please follow these instructions for the next 24 hours: Do not drive a motor vehicle, do not drink any alcoholic beverages, and do not sign any legal documents or make personal or business decisions. A responsible adult should stay with you at least 6 hours after the procedure. 2. Keep your surgical site/incision clean and the dressing dry and intact. You may use an ice pack at the surgical site to reduce any swelling or discomfort. 3. Monitor the incision site for any signs or symptoms of infection. Watch for redness, excessive swelling or drainage, or continued pain at the incision site after 3 days. Contact your physician immediately for a fever, chills or a temperature of 101.5? F or greater. 4. Take your medication exactly as prescribed by your physician. Do not attempt to wean yourself off any of your medications even though your pain is improving. This process needs to be carefully monitored by your doctor. Take any antibiotics prescribed exactly as directed and until they are gone. 5. Resume normal activity as tolerated. 7. Do not operate a motor vehicle, equipment or a power tool while taking pain medication 8. Do not have any manipulation done by a chiropractor or any other physician without first consulting with the surgeon 9. Please contact our office if you are even scheduled for a CT scan or an MRI. 10. Please call us if you have any questions, problems or concerns. Please Follow Up With: Davie Wilder DO When: 3 weeks Meaningful Use Info Meaningful Use Diagnoses (Choose all that apply): None applicable Discharge Plan Admission Admit Date/Time: 05/25/23 15:23 Attending Provider: Davie Wilder Primary Care Provider: Stella Pena NP Consulting Providers: Yuni Morris Discharge Orders/Prescriptions Prescriptions: Continued multivitamin [Daily Multi-Vitamin] Tablet 1 tab PO DAILY atorvastatin 40 mg tablet 40 mg PO DAILY Patient Comments: TAKE 1 TABLET BY MOUTH ONCE DAILY FOR 90 DAYS nebivolol 20 mg tablet 40 mg PO DAILY Patient Comments: TAKE 2 TABLETS BY MOUTH IN THE MORNING amlodipine 2.5 mg tablet 2.5 mg PO DAILY Patient Comments: TAKE 1 TABLET BY MOUTH ONCE DAILY IN THE MORNING duloxetine 30 mg capsule,delayed release(DR/EC) 60 mg PO DAILY Patient Comments: TAKE ONE CAPSULE BY MOUTH with 60mg DOSE EVERY DAY tizanidine 6 mg capsule 12 mg PO TID Patient Comments: TAKE 2 CAPSULES BY MOUTH THREE TIMES DAILY NEEDED FOR MUSCLE SPASM dicyclomine 10 mg capsule 10 mg PO 4X/DAY Patient Comments: TAKE 1 CAPSULE BY MOUTH 4 TIMES DAILY DIRECTED hydrocodone-acetaminophen 5-325 mg tablet 1 tab PO BID pantoprazole 40 mg tablet,delayed release (DR/EC) PO Patient Comments: TAKE 1 TABLET BY MOUTH ONCE DAILY IN THE AFTERNOON 1 HOUR BEFORE DINNER FOR 3 WEEKS Discontinued potassium 99 mg tablet 99 mg PO DAILY Referrals / Follow Up: Davie Wilder DO [Med Staff - Active Staff] - Stella Pena NP, LOGISTICS ASSISTANT-C [Primary Care Provider] - Disposition Disposition (needs filled in before D/C Order can be placed): Home, Self Care
[2023-05-25] MEDS: Lactated Ringers 1,000 ML 15 ML IV (12:30)
[2023-05-25] MEDS: Cefazolin 2 GM in 0.9% Normal Saline (100mL Bag) 100 ML IV (12:56)
[2023-05-25] MEDS: Bupivacaine 0.25% 30 ML Vial (13:16)
[2023-05-25] MEDS: LORazepam 2 MG/ML Syringe 0.5 MG IV (15:19)
[2023-05-25] MEDS: Gabapentin 300 MG Capsule PO (15:20)
[2023-05-25] MEDS: Mag Hydrox/Al Hydrox/Simeth 30 ML UDC PO (15:26)
[2023-05-25] MEDS: Metaxalone 800 MG Tablet PO (15:35)
[2023-05-25] MEDS: oxyCODONE 5 MG Tablet PO ×2 (16:03→20:15)
--- NOTE | 2023-05-25 18:08 | SUR.PHASEII ---
Pt taken to the floor for admission. Called Dr. Wilder to confirm if he would prefer to give the pt, oxycodone or percocet, both are on the mar. He states she can have whichever one she wants, then we can stop the other one. since pt is already on the floor, this nurse called the [facility] nurse to inform her of our conversation.
[2023-05-25] MEDS: Dicyclomine 10 MG Capsule PO ×2 (18:27→21:33)
[2023-05-25] MEDS: Lactated Ringers 1,000 ML 100 ML IV (20:15)
[2023-05-25] MEDS: Cefazolin 1 GM/50 ML BAG IV (21:33)
[2023-05-26 00:13] VITALS: BP 153/105; PULSE 62; RESP 18; TEMP 36.8; O2SAT 100
[2023-05-26] MEDS: oxyCODONE 5 MG Tablet PO ×3 (00:15→08:15)
[2023-05-26] MEDS: Gabapentin 100 MG Capsule PO ×2 (00:15→08:15)
[2023-05-26] MEDS: MELATONIN 3 MG TABLET 6 MG PO (00:15)
[2023-05-26 04:11] VITALS: BP 133/93; PULSE 60; RESP 16; TEMP 36.7; O2SAT 99
[2023-05-26] MEDS: Cefazolin 1 GM/50 ML BAG IV (04:12)
[2023-05-26 08:10] VITALS: BP 170/102; PULSE 67; RESP 16; TEMP 36.7; O2SAT 100
[2023-05-26] MEDS: Dicyclomine 10 MG Capsule PO (08:15)
[2023-05-26] MEDS: Nebivolol HCl 10 MG Tablet 40 MG PO (08:15)
[2023-05-26] MEDS: Multivitamins,Therapeutic Tablet 1 TABLET PO (08:15)
[2023-05-26] MEDS: DULoxetine Hcl 60 MG Capsule PO (08:16)
[2023-05-26] MEDS: Atorvastatin Calcium 40 MG Tablet PO (08:16)
[2023-05-26] MEDS: amLODIPine 2.5 MG Tablet PO (08:16)
--- NOTE | 2023-05-26 08:25 | PHA.DC.MR.R ---
Pharmacy [place] Med Reconciliation Pharmacy Service has performed discharge medication reconciliation for this patient. The patient's discharge medication list was reviewed for discrepancies and discrepancies were resolved. Medications at Discharge Home Medications amlodipine 2.5 mg tablet 2.5 mg PO DAILY 02/10/23 atorvastatin 40 mg tablet 40 mg PO DAILY 02/10/23 duloxetine 30 mg capsule,delayed release 60 mg PO DAILY 02/10/23 multivitamin (Daily Multi-Vitamin tablet) 1 tab PO DAILY 02/10/23 nebivolol 20 mg tablet 40 mg PO DAILY 02/10/23 dicyclomine 10 mg capsule 10 mg PO 4X/DAY 05/23/23 hydrocodone-acetaminophen 5-325mg 5mg-325mg 1 tab PO BID 05/23/23 tizanidine 6 mg capsule 12 mg PO TID 05/23/23 pantoprazole 40 mg tablet,delayed release mg PO 05/25/23
--- NOTE | 2023-05-26 09:05 | CASEMGMT ---
Pt states feeling safe and comfortable DC home today via her Fiance and denies any additional needs at this time.
[2023-05-26 09:45] VITALS: BP 125/102; PULSE 70
== END 2023-05-26 10:06 | disposition home or self-care (01) ==
LOC: SDC 17:18 → MS3 17:18
PROVIDERS: Admitting Provider Orthopaedic Surgery; PCP Nurse Practitioner Family; Referring Provider Orthopaedic Surgery; Visit Provider Orthopaedic Surgery
PROC: (CPT 63661; principal; 2023-05-25 13:05)
DX: Z45.42 Encounter for adjustment and management of neurostimulator (principal); T85.840A Pain due to nervous system prosthetic devices, implants and grafts, initial encounter; M48.061 Spinal stenosis, lumbar region without neurogenic claudication; G89.29 Other chronic pain; M47.816 Spondylosis without myelopathy or radiculopathy, lumbar region; Z79.899 Other long term (current) drug therapy; E78.00 Pure hypercholesterolemia, unspecified; I10 Essential (primary) hypertension; M51.36 Other intervertebral disc degeneration, lumbar region; M47.26 Other spondylosis with radiculopathy, lumbar region
CPT/HCPCS: 63688; 63662; 00300; 72100; 76000; 96361; 96365; 96366; 99221; J7120; G0378; J2405